=== PATIENT | male | born 1950 ===

== ENCOUNTER 2018-08-06 14:31 | Inpatient (IN) | payer MEDICARE ==
[2018-08-06 14:32] VITALS: BMI 23.6
--- NOTE | 2018-08-06 15:36 | ED PDOC ---
HPI: SOB/CHF/COPD Time Seen by Provider: 08/06/18 15:08 Chief Complaint (Nursing): Medical Clearance Chief Complaint (Provider): Shortness of Breath History Per: Patient History/Exam Limitations: no limitations Onset/Duration Of Symptoms: Hrs (this morning) Current Symptoms Are (Timing): Still Present Additional Complaint(s): 68 year old male with advanced lung cancer presents to the ED for difficulty breathing since this morning. He states he was recently hospitalized for several days and then discharged, since doing well at home on 2L O2. Today, he reports worsening shortness of breath and called his cousin, who is his healthcare proxy and called 911. Patient does note that his shortness of breath feels like it typically does, and otherwise denies chest pain, cough, and fever. PMD: none provided Past Medical History Reviewed: Historical Data, Nursing Documentation, Vital Signs Vital Signs: Last Vital Signs Temp 98.6 F 08/06/18 14:35 Pulse 117 H 08/06/18 14:35 Resp 24 08/06/18 14:35 BP 126/79 08/06/18 14:35 Pulse Ox 94 L 08/06/18 14:35 - Medical History PMH: Asthma, Malignancy (lung cancer) Denies: Chronic Kidney Disease - Surgical History Surgical History: No Surg Hx - Family History Family History: States: Unknown Family Hx - Social History Ex-Smoker (has not smoked in the last 12 months): Yes Alcohol: None Drugs: Denies - Immunization History Hx Tetanus Toxoid Vaccination: No Hx Influenza Vaccination: No Hx Pneumococcal Vaccination: No - Home Medications Home Medications: Ambulatory Orders Medication Instructions Recorded Budesonide/Formoterol Fumarate 1 aer IH Q12 #1 aer 07/30/18 [Symbicort] Tiotropium [Spiriva] 18 mcg IH DAILY 30 Days #30 cap 07/30/18 predniSONE [Prednisone] 40 mg PO DAILY #20 tab 07/30/18 predniSONE [predniSONE Tab] 10 mg PO DAILY #10 tab 07/30/18 RX: Albuterol HFA [Ventolin HFA 90 2 puff IH Q6 PRN 08/06/18 mcg/actuation (8 g)] - Allergies Allergies/Adverse Reactions: Allergies Allergy/AdvReac Type Severity Reaction Status Date / Time No Known Allergies Allergy Verified 07/20/18 19:16 Review of Systems ROS Statement: Except As Marked, All Systems Reviewed And Found Negative Constitutional: Negative for: Fever Cardiovascular: Negative for: Chest Pain Respiratory: Positive for: Shortness of Breath. Negative for: Cough Physical Exam - Reviewed Nursing Documentation Reviewed: Yes Vital Signs Reviewed: Yes - Physical Exam Appears: Positive for: No Acute Distress Head Exam: Positive for: ATRAUMATIC, NORMOCEPHALIC Skin: Positive for: Warm, Dry Eye Exam: Positive for: Normal appearance ENT: Positive for: Normal ENT Inspection Neck: Positive for: Normal, Painless ROM, Supple Cardiovascular/Chest: Positive for: Tachycardia. Negative for: Murmur Respiratory: Positive for: Decreased Breath Sounds (decreased air entry bilaterally), Other (retractions). Negative for: Crackles Gastrointestinal/Abdominal: Positive for: Normal Exam, Soft. Negative for: Tenderness Extremity: Positive for: Normal ROM, Other (chronic venous stasis to bilateral lower extremities) Neurologic/Psych: Positive for: Alert, Oriented (x3) - Laboratory Results Result Diagrams: 08/06/18 15:40 08/06/18 15:40 - ECG ECG: Positive for: Interpreted By Me, Viewed By Me ECG Rhythm: Positive for: Normal QRS, Normal ST Segment, Sinus Tachycardia (at 117 bpm) O2 Sat by Pulse Oximetry: 94 (RA) Pulse Ox Interpretation: Abnormal Interpretation Of Abnormal: history cancer; will place on 5L [place] Medical Decision Making Medical Decision Making: Time: 1510 Initial Impression: Workup for worsening shortness of breath with known cancer, r/o infectious process Initial Plan: --On 5L NC --EKG --BNP --CMP --Trop I --CBC with differential --Chest x-ray --Influenza A B --Reassess 1636 CXR FINDINGS: LUNGS: Multifocal pulmonary masses are identified varying in size from small to large with the right apex seen most affected, in a pattern most compatible with metastatic disease. Primary pulmonary pathology not excluded though other etiologies are possible. Airspace disease difficult exclude the upper right lung zone. Emphysematous changes appear to affect the medial right apex. PLEURA: No significant pleural effusion identified, no pneumothorax apparent. CARDIOVASCULAR: No aortic atherosclerotic calcification present. Normal cardiac size. No pulmonary vascular congestion. OSSEOUS STRUCTURES: No significant abnormalities. VISUALIZED UPPER ABDOMEN: Normal. OTHER FINDINGS: None. IMPRESSION: Widespread pulmonary metastasis are identified from an indeterminate origin as discussed above. Elevated limited diaphragm. Underlying airspace disease difficult to exclude the right upper lung zone. Emphysematous changes are suspected at the medial right apex. 17:46: Discussed patient with Dr. Cifuentes who is familiar with the patients previous treatment and will be taking over as PCP but has not yet seen the patient. Labs and XRay results discussed and will no obtain a CT chest to rule out PE. Will contact Dr. Cifuentes with CT results. [address] Cunningham pending CT Angio and admission to Dr. Cifuentes. Scribe Attestation: Documented by Susan Villagran, acting as a scribe for Veronica Jones MD. Provider Scribe Attestation: All medical record entries made by the Scribe were at my direction and personally dictated by me. I have reviewed the chart and agree that the record accurately reflects my personal performance of the history, physical exam, medical decision making, and the department course for this patient. I have also personally directed, reviewed, and agree with the discharge instructions and disposition. Disposition - Clinical Impression Clinical Impression: Dyspnea, Lung cancer, Multiple lung nodules on CT - Disposition Disposition: Transfer of Care Disposition Time: 19:00 Condition: STABLE
[2018-08-06 16:21] LABS: BASO % 0.2 % (0.0-2.0); EOS % 0.2 % (0.0-4.0); HEMOGLOBIN 13.3 g/dL (12.0-18.0); LYMPH # 0.6 K/uL (1.0-4.3); LYMPH % 4.4 % (20.0-40.0); MEAN CELL VOLUME 84.4 fl (80.0-94.0); MEAN PLATELET VOLUME 8.1 fl (7.2-11.7); MONO # 0.6 K/uL (0.0-0.8); MONO % 4.9 % (0.0-10.0); NEUT # 11.8 K/uL (1.8-7.0); NEUT % 90.3 % (50.0-75.0); PLATELET COUNT 191 K/uL (130-400); RBC 4.91 Mil/uL (4.40-5.90); RED CELL DISTRIBUTION WIDTH 17.8 % (11.5-14.5); WHITE BLOOD COUNT 13.1 K/uL (4.8-10.8)
[2018-08-06 16:23] LABS: ALB/GLOB RATIO 0.9 (1.0-2.1); ALBUMIN 3.2 g/dL (3.5-5.0); ALT/SGPT 36 U/L (21-72); AST/SGOT 20 U/L (17-59); B-TYPE NATRIURETIC PEPTIDE 155 pg/ml (0-900); BLOOD UREA NITROGEN 24 mg/dl (9-20); CALCIUM 8.8 mg/dL (8.4-10.2); GFR NON-AFRICAN AMERICAN > 60
--- NOTE | 2018-08-06 16:40 | RAD ---
Date of service: 08/06/2018 HISTORY: possible admission COMPARISON: No prior. FINDINGS: LUNGS: Multifocal pulmonary masses are identified varying in size from small to large with the right apex seen most affected, in a pattern most compatible with metastatic disease. Primary pulmonary pathology not excluded though other etiologies are possible. Airspace disease difficult exclude the upper right lung zone. Emphysematous changes appear to affect the medial right apex. PLEURA: No significant pleural effusion identified, no pneumothorax apparent. CARDIOVASCULAR: No aortic atherosclerotic calcification present. Normal cardiac size. No pulmonary vascular congestion. OSSEOUS STRUCTURES: No significant abnormalities. VISUALIZED UPPER ABDOMEN: Normal. OTHER FINDINGS: None. IMPRESSION: Widespread pulmonary metastasis are identified from an indeterminate origin as discussed above. Elevated limited diaphragm. Underlying airspace disease difficult to exclude the right upper lung zone. Emphysematous changes are suspected at the medial right apex.
[2018-08-06] MEDS ORDERED: Albuterol-Ipratrop 3 mg / 0.5 (3 ml) UD INH STA (17:11)
[2018-08-06] MEDS ORDERED: Sodium Chloride 0.9% 50 ML IV ONE (17:58)
[2018-08-06] MEDS ORDERED: Iodixanol 320 MG/ML 100 ML BOTTLE IV ONE (17:58)
[2018-08-06 18:00] LABS: BASOPHIL 1 % (0-2); LYMPHOCYTE 5 % (20-50); MONOCYTE 4 % (0-10); NEUTROPHIL 90 % (42-75); PLATELET ESTIMATE NORMAL (NORMAL); TOTAL CELLS COUNTED 100
[2018-08-06 18:01] LABS: ANISOCYTOSIS SLIGHT
[2018-08-06 18:02] LABS: OVALOCYTES SLIGHT
[2018-08-06] MEDS ORDERED: Albuterol-Ipratrop 3 mg / 0.5 (3 ml) UD ONE (19:07)
--- NOTE | 2018-08-06 19:23 | ED PDOC ---
- Laboratory Results Result Diagrams: 08/06/18 15:40 08/06/18 15:40 - ECG O2 Sat by Pulse Oximetry: 94 (RA) Medical Decision Making Medical Decision Makin Patient care endorsed from Dr. Jones pending CT Angio and admission to Dr. Cifuentes. 1915 CT Angio COMMENTS: There is bright opacification of the aorta and pulmonary arterial structures. The aorta is normal caliber and there is no dissection of the intima. No defect is seen in the pulmonary arteries to suggest pulmonary embolus. The lungs show no consolidation or pleural effusion. Severe upper lobes predominant paraseptal and centrilobular emphysema is seen. There innumerable lung masses and nodules seen scattered throughout the lungs consistent with metastatic disease but appears to be a dominant right suprahilar mass most consistent with primary malignancy measuring approximately 9 x 6 cm. There is extensive bilateral hilar and mediastinal lymphadenopathy noted. The bony structures appear intact. No change is seen in the included upper abdominal structures. IMPRESSION: 1. No evidence of pulmonary embolism. 2. Severe upper lobes predominant paraseptal and centrilobular emphysema. 3. Innumerable lung masses and nodules seen scattered throughout the lungs consistent with metastatic disease but appears to be a dominant right suprahilar mass most consistent with primary malignancy measuring approximately 9 x 6 cm. Consider follow-up with PET CT. 4. Extensive bilateral hilar and mediastinal lymphadenopathy. 5. No evidence of PE. 2026 no PE Patient to be admitted to Dr. Cifuentes. pt aware and requesting food ---- Scribe Attestation: Documented by Susan Villagran, acting as a scribe for Dagoberto Hanson MD. Provider Scribe Attestation: All medical record entries made by the Scribe were at my direction and personally dictated by me. I have reviewed the chart and agree that the record accurately reflects my personal performance of the history, physical exam, medical decision making, and the department course for this patient. I have also personally directed, reviewed, and agree with the discharge instructions and d isposition. Disposition Counseled Patient/Family Regarding: Studies Performed, Diagnosis - Clinical Impression Clinical Impression: Dyspnea, Lung cancer, Multiple lung nodules on CT - POA Present On Arrival: None - Disposition Disposition: Admitted as In-Patient Disposition Time: 00:10 Condition: STABLE
[2018-08-07] MEDS ORDERED: Albuterol-Ipratrop 3 mg / 0.5 (3 ml) UD INH PRN (01:43)
[2018-08-07] MEDS ORDERED: Sodium Chloride 3% for Inhalation 4 ML VIAL.NEB IH PRN (01:43)
[2018-08-07] MEDS ORDERED: Patient's Own Med (Budesonide/Formoterol Fumarate [Symbicort 160-4.5 Mcg Inhaler] 1 AER) IH SCH (09:00)
[2018-08-07] MEDS: levoFLOXacin 500 mg in D5W 500 MG/100 ML BAG IVPB SCH (09:20)
[2018-08-07] MEDS: Enoxaparin 40 mg Syringe SC SCH (09:21)
[2018-08-07] MEDS: Fluticasone-Salmeterol 250-50mcg Diskus IH SCH ×2 (09:21→22:08)
[2018-08-07] MEDS: Tiotropium 18 mcg Cap For Inhalation IH SCH (09:22)
--- NOTE | 2018-08-07 10:43 | CT ---
Date of service: 08/06/2018 PROCEDURE: CT Chest with contrast (Pulmonary Angiogram) HISTORY: acute worsened SOB with lung ca COMPARISON: None available. TECHNIQUE: Axial computed tomography images were obtained of the chest in the pulmonary arterial phase of enhancement. Coronal and sagittal reformatted images were created and reviewed. Intravenous contrast dose: 95 mL Omnipaque 300 Radiation dose: Total exam DLP = 324.9 mGy-cm. This CT exam was performed using one or more of the following dose reduction techniques: Automated exposure control, adjustment of the mA and/or kV according to patient size, and/or use of iterative reconstruction technique. FINDINGS: PULMONARY ARTERIES: No evidence of pulmonary embolism. Please note that there is narrowing of the right lower lobe pulmonary artery branch and severe narrowing ordering on occlusion of the right upper lobe pulmonary artery branch, secondary to pulmonary neoplasm. AORTA: No acute findings. No thoracic aortic aneurysm. No aortic atherosclerotic calcification or mural plaque present. LUNGS: Innumerable pulmonary masses bilaterally. Dominant mass in right upper lobe occupying most of the volume of the right upper lobe with areas of central cavitation/necrosis. There is extensive bilateral rounded nodular metastasis. Mild emphysematous change most notably left upper lobe, with small bullae bilaterally.. PLEURAL SPACES: Small right upper pneumothorax. No pleural effusion. HEART: Unremarkable. No cardiomegaly. No significant pericardial effusion. LYMPH NODES: Extensive mediastinal and bilateral hilar lymphadenopathy. Large right upper pole dominant mass extends directly to right hilum and mediastinum. Right epicardial lymphadenopathy. BONES, CHEST WALL: Unremarkable. No fracture or destructive lesion. Mild bilateral gynecomastia. OTHER FINDINGS: Multiple nonspecific rounded low-attenuation masses in the left lobe of the liver. There is a 1.7 cm mass in the lateral segment left hepatic lobe, beneath the dome of the diaphragm. 1.6 cm mass also seen in the lateral segment left hepatic lobe. IMPRESSION: Large right upper lobe mass predominantly replacing the right upper lobe. Areas of central cavitation/necrosis. Almost complete occlusion of right upper lobe pulmonary artery by extrinsic compression.. Extrinsic compression and narrowing of right lower lobe pulmonary artery. Innumerable bilateral rounded masses consistent with metastasis. Mediastinal and bilateral hilar lymphadenopathy. Small right upper pneumothorax. Follow-up advised. Multiple hepatic masses common nonspecific. Possible metastasis. The preliminary findings for this examination were reported by [facility] Rad[facility] at 7:16 p.m. on 08/06/2018. There is discordance of this report with the preliminary findings. Small right pneumothorax was not mentioned in the preliminary report of this examination. Possible hepatic metastasis was not described in the preliminary report of this examination. Occlusion or near occlusion of right upper lobe pulmonary artery was not described in the preliminary report of this examination. The finding of the pneumothorax common not previously reported, was discussed by telephone with the patient's nurse, Yee, by telephone at 10:39 a.m. on 08/07/2018.
--- NOTE | 2018-08-07 20:24 | CARD ---
APPROVED REPORT Date of service: 08/06/2018 EKG Measurement Heart [id number] <Conclusion> Sinus tachycardia Biatrial enlargement Abnormal ECG
[2018-08-08] MEDS: MethylPREDNISolone 40 mg Vial IVP SCH ×3 (01:06→17:13)
--- NOTE | 2018-08-08 08:42 | HP ---
HISTORY OF PRESENT ILLNESS: This is a 68-year-old male with history of metastatic cancer of lung, presented to the emergency room with symptoms of wheezing as well as shortness of breath and dropping of the oxygen saturation. The patient recently was diagnosed with cancer of lung, and he is under treatment by medical oncologist, Dr. Chavez. The patient was and he is on home oxygen, and his oxygen was dropping in spite of home oxygen therapy. The patient was evaluated in the emergency room, and he was found to have significant disease in both lungs with a large right-sided lung mass. The patient was started on IV Levaquin as well as steroids and admitted for further management. Positive symptoms of generalized weakness and easy fatigability. Otherwise, review of systems is negative. ALLERGIES: NO KNOWN ALLERGIES. MEDICATIONS: Reviewed as per MAR and ordered. SOCIAL HISTORY: Positive smoker. No EtOH or substance abuse. FAMILY HISTORY: Not contributory. PHYSICAL EXAMINATION: GENERAL: The patient was found in bed in mild respiratory distress. VITAL SIGNS: Blood pressure 105/72, temperature 99.2, respiratory rate 20, and pulse 113. HEENT: Pupils equal and reactive to light. Normal appearing mucosa of the conjunctivae, oropharynx, and nasal membrane mucosa. NECK: Supple. No JVD. No carotid bruit. No lymph node. No thyromegaly. CHEST AND LUNGS: Bilateral symmetrical expansion. Bilateral rhonchi, both inspiratory and expiratory with coarse rales that change with cough. CARDIOVASCULAR SYSTEM: PMI not localized. S1 and S2. No additional sounds. ABDOMEN: Normoactive bowel sounds. No tenderness. No organomegaly. No masses. EXTREMITIES: No cyanosis. No clubbing. CENTRAL NERVOUS SYSTEM: Alert, awake, and oriented x2 and moves all extremities equally. ASSESSMENT: 1. Metastatic cancer of lung. 2. underlying obstructive pneumonia. 3. Exacerbation of chronic obstructive pulmonary disease. PLAN: Steroids and bronchodilators, antibiotics, pulmonary consult, oncology consult , and follow recommendations. Guillermo Cifuentes MD
[2018-08-08] MEDS: levoFLOXacin 500 mg in D5W 500 MG/100 ML BAG IVPB SCH (09:22)
[2018-08-08] MEDS: Fluticasone-Salmeterol 250-50mcg Diskus IH SCH ×2 (09:22→21:47)
[2018-08-08] MEDS: Enoxaparin 40 mg Syringe SC SCH (09:23)
[2018-08-08] MEDS: Tiotropium 18 mcg Cap For Inhalation IH SCH (09:23)
--- NOTE | 2018-08-08 09:44 | RAD ---
Date of service: 08/08/2018 PROCEDURE: CHEST RADIOGRAPH, 1 VIEW HISTORY: lung mass COMPARISON: 08/06/2018 chest x-ray. CT chest angio PE study 08/06/2018 noted FINDINGS: LUNGS: The innumerable bilateral pulmonary nodular masses bearing size suspicious for bilateral pulmonary metastases are similar in appearance. These appear more confluent and/or blending with a dominant right upper lobe pulmonary mass as before. An air-fluid level in this right upper lobe an note necrosis and/or cavitary mass. Which has been previously noted. No interval change appreciated in the overall extensive pulmonary masses perceived. PLEURA: Prior mention of a pneumothorax noted. This is difficult to appreciate as such on this exam. Right paratracheal superimpose radiolucency-inferred as large confluent concomitant bulla. No tracheal deviation appreciated. No interval or significant appearing pleural effusion noted. A minimal left pleural effusion and/or chronic pleural thickening here is inferred. CARDIOVASCULAR: There is absence of aortic atherosclerotic calcification on x-ray. Heart size probably top-normal. No gross pulmonary venous congestion seen. OSSEOUS STRUCTURES: Bilateral shoulder arthrosis. VISUALIZED UPPER ABDOMEN: Normal. OTHER FINDINGS: Asymmetrically elevated left hemidiaphragm blunted left costophrenic angle-similar in appearance IMPRESSION: No interval pathology perceived-the multiple findings noted above are summarized as follows: Bilateral pulmonary inferred metastatic nodules-similar. Large right upper lobe cavitation and/or necrosis-similar. Right paratracheal large bulla-concomitant pneumothorax here difficult to perceive. Minimal left costophrenic angle pleural thickening and/or minimal pleural effusion-similar
--- NOTE | 2018-08-08 09:50 | CP.PCM.CON ---
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 He had multiple masses in the lung especially in the right upper lobe ,and has hilar and medias tinal nodes, This was biopsied at [facility],and showed squamous cell cancer of the lung. he was seen by a oncologist Dr Chavez. Pt was supposed to go to her office for discussing the treatment plans. So far he has not had any RT or chemotherapy. Pt was a smoker 10 cigs /day for several years. COPD does not drink. Past Patient History - Past Medical History & Family History Past Medical History?: Yes - Past Social History Smoking Status: Heavy Smoker > 10 Cigarettes Daily - CARDIAC Hx Cardiac Disorders: No - PULMONARY Hx Respiratory Disorders: Yes - NEUROLOGICAL Hx Neurological Disorder: No - HEENT Hx HEENT Problems: No - RENAL Hx Chronic Kidney Disease: No - ENDOCRINE/METABOLIC Hx Endocrine Disorders: No - HEMATOLOGICAL/ONCOLOGICAL Hx Blood Disorders: No - INTEGUMENTARY Hx Dermatological Problems: No - MUSCULOSKELETAL/RHEUMATOLOGICAL Hx Musculoskeletal Disorders: No Hx Falls: No - GASTROINTESTINAL Hx Gastrointestinal Disorders: No - GENITOURINARY/GYNECOLOGICAL Hx Genitourinary Disorders: No - PSYCHIATRIC Hx Psychophysiologic Disorder: No Hx Substance Use: No - SURGICAL HISTORY Hx Surgeries: No - ANESTHESIA Hx Anesthesia: No Meds Allergies/Adverse Reactions: Allergies Allergy/AdvReac Type Severity Reaction Status Date / Time No Known Allergies Allergy Verified 07/20/18 19:16 - Medications Medications: Current Medications Acetaminophen (Tylenol 325mg Tab) 650 mg PO Q4 PRN PRN Reason: Pain, Mild (1-3) Albuterol/Ipratropium (Duoneb 3 Mg/0.5 Mg (3 Ml) Ud) 3 ml INH RQ6 PRN PRN Reason: Shortness of Breath Enoxaparin Sodium (Lovenox) 40 mg SC DAILY JACK; Protocol Last Admin: 08/08/18 09:23 Dose: 40 mg Levofloxacin/Dextrose (Levaquin 500mg) 500 mg in 100 mls @ 100 mls/hr IVPB DAILY JACK; Protocol Last Admin: 08/08/18 09:22 Dose: 100 mls/hr Methylprednisolone (Solu-Medrol) 40 mg IVP Q8 JACK Last Admin: 08/08/18 09:23 Dose: 40 mg Fluticasone/Salmeterol (Advair Diskus 250/50) 1 puff IH Q12 JACK Last Admin: 08/08/18 09:22 Dose: 1 puff Tiotropium [place] (Spiriva) 18 mcg IH DAILY JACK Last Admin: 08/08/18 09:23 Dose: 18 mcg Physical Exam - Additional Findings Additional findings: Physical exam; Alert,well oriented in no acute distress neck; supple.no adenopathy Chest; Air entry poor bilaterally Heart; RSR, no murmur Abd; Soft, no mass, no h/s megaly Results - Vital Signs Recent Vital Signs: Last Vital Signs Temp 98.1 F 08/08/18 07:55 Pulse 87 08/08/18 07:55 Resp 18 08/08/18 07:55 BP 100/65 08/08/18 07:55 Pulse Ox 98 08/08/18 07:55 - Labs Result Diagrams: 08/06/18 15:40 08/06/18 15:40 Assessment & Plan - Assessment and Plan (Free Text) Assessment: Impression; 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 Plan: Plan; Pt can be discharged whhen stable from a respiratory point of view, and he will make an appointment with Dr Chavez on discharge.
--- NOTE | 2018-08-08 10:56 | CP.PCM.CON ---
History of Present Illness - History of Present Illness History of Present Illness: 68 year old male cigarette smoker recently diagnosed at [facility] with squamous cell carcinoma of the lung, appears to be RUL primary with diffuse metastatic disease to both lungs, mediastinum and liver. Presented to this ER one week after discharge because of oxygen desaturation. He had been discharged with home O2 and planned follow up with oncology for treatment which he had not yet been able to do. He claims to have discontinued smoking at the time of his admission to [facility]. He denies chest pain or hemoptysis. Past Patient History - Past Medical History & Family History Past Medical History?: Yes - Past Social History Smoking Status: Heavy Smoker > 10 Cigarettes Daily Alcohol: None Drugs: Denies - CARDIAC Hx Cardiac Disorders: No - PULMONARY Hx Respiratory Disorders: Yes Hx Lung Cancer: Yes - NEUROLOGICAL Hx Neurological Disorder: No - HEENT Hx HEENT Problems: No - RENAL Hx Chronic Kidney Disease: No - ENDOCRINE/METABOLIC Hx Endocrine Disorders: No - HEMATOLOGICAL/ONCOLOGICAL Hx Blood Disorders: No - INTEGUMENTARY Hx Dermatological Problems: No - MUSCULOSKELETAL/RHEUMATOLOGICAL Hx Musculoskeletal Disorders: No Hx Falls: No - GASTROINTESTINAL Hx Gastrointestinal Disorders: No - GENITOURINARY/GYNECOLOGICAL Hx Genitourinary Disorders: No - PSYCHIATRIC Hx Psychophysiologic Disorder: No Hx Substance Use: No - SURGICAL HISTORY Hx Surgeries: No - ANESTHESIA Hx Anesthesia: No Meds Allergies/Adverse Reactions: Allergies Allergy/AdvReac Type Severity Reaction Status Date / Time No Known Allergies Allergy Verified 07/20/18 19:16 - Medications Medications: Current Medications Acetaminophen (Tylenol 325mg Tab) 650 mg PO Q4 PRN PRN Reason: Pain, Mild (1-3) Albuterol/Ipratropium (Duoneb 3 Mg/0.5 Mg (3 Ml) Ud) 3 ml INH RQ6 PRN PRN Reason: Shortness of Breath Enoxaparin Sodium (Lovenox) 40 mg SC DAILY JACK; Protocol Last Admin: 08/08/18 09:23 Dose: 40 mg Levofloxacin/Dextrose (Levaquin 500mg) 500 mg in 100 mls @ 100 mls/hr IVPB DA [place]OL[place] JACK; Protocol Last Admin: 08/08/18 09:22 Dose: 100 mls/hr Methylprednisolone (Solu-Medrol) 40 mg IVP Q8 JACK Last Admin: 08/08/18 09:23 Dose: 40 mg Fluticasone/Salmeterol (Advair Diskus 250/50) 1 puff IH Q12 [facility] Last Admin: 08/08/18 09:22 Dose: 1 puff Tiotropium [place] (Spiriva) 18 mcg IH DAILY [facility] Last Admin: 08/08/18 09:23 Dose: 18 mcg Physical Exam - Additional Findings Additional findings: Seated up in bed with nasal canula in place. He appears comfortable at rest without SOB. No cyanosis, trace dependant edema. Pharynx in injected with posterior rhinorrhea noted. Nasal passages are patent bilaterally without bleeding or exudate. Neck is supple and trachea is slightly deviated towards the right. No palpable cervical or axillary adenopathy. Dullness to percussion of the right upper chest anteriorly. Noisy respiration with rhonchi present over the right upper chest. Breath sounds are diminished bilaterally. No audible wheezing. Heart sounds are distant, tachycardic, regular. Abdomen is soft and non-tender. Results - Vital Signs Recent Vital Signs: Last Vital Signs Temp 98.1 F 08/08/18 07:55 Pulse 87 08/08/18 07:55 Resp 18 08/08/18 07:55 BP 100/65 08/08/18 07:55 Pulse Ox 98 08/08/18 07:55 - Labs Result Diagrams: 08/06/18 15:40 08/06/18 15:40 Assessment & Plan (1) Lung cancer Status: Acute Priority: High (2) Widespread metastatic malignant neoplastic disease Status: Acute Priority: High - Assessment and Plan (Free Text) Plan: Patient requests discharge back to home. Oxygenation has been >95% consistently on nasal canula @ 2 LPM. Needs oncology follow up as soon as possible and initiation of chemotherapy. Continue home O2. Prognosis is very poor. - Date & Time Date: 08/08/18 Time: 10:57
--- NOTE | 2018-08-08 21:21 | PN ---
DATE: 08/08/2018 SUBJECTIVE: The patient is seen today, 08/08/2018. He is in mild respiratory distress and he has wheezing. PHYSICAL EXAMINATION VITAL SIGNS: Blood pressure is 101/68, temperature 98.5, respiratory rate 17 and pulse 96. HEENT: Pupils equal, reactive to light. Normal-appearing mucosa of the conjunctivae, oropharynx and nasal membrane mucosa. NECK: Supple. No JVD. No carotid bruit. No lymph node. No thyromegaly. CHEST AND LUNGS: Bilateral symmetrical expansion. Good air exchange. No rales. Bilateral rhonchi scattered in lower over lung benavidez. CARDIOVASCULAR SYSTEM: PMI not localized. S1, S2. No additional sounds. ABDOMEN: Normoactive bowel sounds. No tenderness. No organomegaly. No masses. EXTREMITIES: No cyanosis, no clubbing, no edema. CENTRAL NERVOUS SYSTEM: Alert, awake, oriented x2. No neurological deficit could be appreciated. ASSESSMENT: 1. Metastatic cancer of lung, squamous cell carcinoma. 2. Severe chronic obstructive pulmonary disease with airway disease and bronchitis. PLAN: Continue Solu-Medrol, Levaquin and DuoNeb. We will add Mucomyst. I discussed with the patient's caregiver who requested to call oncology consult in [facility] and decide about further management. Guillermo Cifuentes MD
[2018-08-09] MEDS: MethylPREDNISolone 40 mg Vial IVP SCH (00:09)
[2018-08-09] MEDS: Acetylcysteine 20% Inhal Soln (4ml) INH SCH ×2 (07:34→19:39)
--- NOTE | 2018-08-09 10:14 | CP.PCM.PN ---
Subjective - Date & Time of Evaluation Date of Evaluation: 08/09/18 Time of Evaluation: 10:08 - Subjective Subjective: Seen on morning rounds. Sitting up in bed, asking if he can go home. Offers no complaint of shortness of breath or chest pain. Neck is supple and trachea is mildly deviated towards the right. Dullness to percussion over the right upper, anterior thorax. Harsh breath sounds with I/E rhonchi most prominent over the RUL. Repeat CXR reviewed: likely RUL bullae are causing shadowing that appear to represent pneumothorax. If therapy is to be considered, it should be initiated soon. ANP on telemetry will contact POA and discuss option. Objective - Vital Signs/Intake and Output Vital Signs (last 24 hours): Temp Pulse Resp BP Pulse Ox 97.7 F 78 18 100/65 98 08/09/18 08:19 08/09/18 08:19 08/09/18 08:19 08/09/18 08:19 08/09/18 08:19 - Medications Medications: Current Medications Acetaminophen (Tylenol 325mg Tab) 650 mg PO Q4 PRN PRN Reason: Pain, Mild (1-3) Acetylcysteine (Acetylcysteine 20%) 2 ml INH RBID JACK Last Admin: 08/09/18 07:34 Dose: 2 ml Albuterol/Ipratropium (Duoneb 3 Mg/0.5 Mg (3 Ml) Ud) 3 ml INH RQ6 PRN PRN Reason: Shortness of Breath Last Admin: 08/09/18 07:34 Dose: 3 ml Enoxaparin Sodium (Lovenox) 40 mg SC DAILY JACK; Protocol Last Admin: 08/08/18 09:23 Dose: 40 mg Levofloxacin/Dextrose (Levaquin 500mg) 500 mg in 100 mls @ 100 mls/hr IVPB DAILY JACK; Protocol Last Admin: 08/08/18 09:22 Dose: 100 mls/hr Methylprednisolone (Solu-Medrol) 40 mg IVP Q8 JACK Last Admin: 08/09/18 00:09 Dose: 40 mg Fluticasone/Salmeterol (Advair Diskus 250/50) 1 puff IH Q12 JACK Last Admin: 08/08/18 21:47 Dose: 1 puff Tiotropium Whitestone (Spiriva) 18 mcg IH DAILY JACK Last Admin: 08/08/18 09:23 Dose: 18 mcg - Labs Labs: 08/06/18 15:40 08/06/18 15:40 Assessment and Plan (1) Lung cancer Status: Acute (2) Widespread metastatic malignant neoplastic disease Status: Acute
[2018-08-09] MEDS ORDERED: Albuterol 0.083% Inhal Sol (2.5 mg/3 mL) UD INH PRN (10:18)
[2018-08-09] MEDS ORDERED: methylPREDNISolone 30 MG in Sodium Chloride 0.9% 50 ML IV SCH (10:30)
[2018-08-09] MEDS ORDERED: MethylPREDNISolone 40 mg Vial IVP ONE (10:30)
--- NOTE | 2018-08-09 10:44 | CP.PCM.PN ---
Subjective - Date & Time of Evaluation Date of Evaluation: 08/09/18 Time of Evaluation: 10:37 - Subjective Subjective: Pt claims he feels better today. He is still on antibiotics and steroids. He has been a smoker for several yrs and only stopped when the diagnosis of cancer was made. He was seen by Dr Chavez and was supposed to go back and see her in the office, but did not make it .and came to the ER with respiratory distress. He needs chemotherapy but he cannot decide if he wants to go to Dr Chavez or to stay at [facility]. The infusion unit is closed and the oncology nurse will only be available on Monday so he will have to get the chemo then. He is keen to go home and then think where he wants to go . He has a squamous cell cancer I will be on vacation from 08/10/18 to 08/25/18. Dr Quoc Bowden will be covering for me. Objective - Vital Signs/Intake and Output Vital Signs (last 24 hours): Temp Pulse Resp BP Pulse Ox 97.7 F 78 18 100/65 98 08/09/18 08:19 08/09/18 08:19 08/09/18 08:19 08/09/18 08:19 08/09/18 08:19 - Medications Medications: Current Medications Acetaminophen (Tylenol 325mg Tab) 650 mg PO Q4 PRN PRN Reason: Pain, Mild (1-3) Acetylcysteine (Acetylcysteine 20%) 2 ml INH RBID JACK Last Admin: 08/09/18 07:34 Dose: 2 ml Albuterol Sulfate (Albuterol 0.083% Inhal Jo Ann (2.5 Mg/3 Ml) Ud) 2.5 mg INH RQ4 PRN PRN Reason: Shortness of Breath Albuterol/Ipratropium (Duoneb 3 Mg/0.5 Mg (3 Ml) Ud) 3 ml INH RQID JACK Enoxaparin Sodium (Lovenox) 40 mg SC DAILY JACK; Protocol Last Admin: 08/08/18 09:23 Dose: 40 mg Levofloxacin/Dextrose (Levaquin 500mg) 500 mg in 100 mls @ 100 mls/hr IVPB DAILY JACK; Protocol Last Admin: 08/08/18 09:22 Dose: 100 mls/hr - Labs Labs: 08/06/18 15:40 08/06/18 15:40
[2018-08-09] MEDS: Enoxaparin 40 mg Syringe SC SCH (11:06)
[2018-08-09] MEDS: levoFLOXacin 500 mg in D5W 500 MG/100 ML BAG IVPB SCH (11:06)
[2018-08-09] MEDS: Fluticasone-Salmeterol 250-50mcg Diskus IH SCH (11:12)
[2018-08-09] MEDS: Tiotropium 18 mcg Cap For Inhalation IH SCH (11:24)
[2018-08-09] MEDS: Albuterol-Ipratrop 3 mg / 0.5 (3 ml) UD INH SCH ×3 (11:25→19:36)
[2018-08-10] MEDS: Albuterol-Ipratrop 3 mg / 0.5 (3 ml) UD INH SCH ×4 (07:22→19:23)
[2018-08-10] MEDS: Acetylcysteine 20% Inhal Soln (4ml) INH SCH ×2 (07:22→19:23)
[2018-08-10] MEDS ORDERED: methylPREDNISolone 30 MG in Sodium Chloride 0.9% 50 ML IV ONE (09:00)
[2018-08-10] MEDS: Enoxaparin 40 mg Syringe SC SCH (09:38)
[2018-08-10] MEDS: levoFLOXacin 500 mg in D5W 500 MG/100 ML BAG IVPB SCH (09:38)
[2018-08-10] MEDS ORDERED: MethylPREDNISolone 40 mg Vial IVP ONE (10:00)
--- NOTE | 2018-08-10 11:32 | CP.PCM.PN ---
Subjective - Date & Time of Evaluation Date of Evaluation: 08/10/18 Time of Evaluation: 11:25 - Subjective Subjective: Seated upright in bed, appears comfortable. States that he is feeling improved. No complaints of chest discomfort or SOB. Breath sounds are significantly improved fro admission. Airways turbulence, prolonged E phase have both decreased. Good breath sounds are now heard bilaterally, but some E wheezes are still faintly present. Plan is to tentatively begin chemotherapy in the coming week. Continue inhalation therapy with albuterol/ipratropium. Would maintain some level of corticosteroids as well; either PO or parenteral. Objective - Vital Signs/Intake and Output Vital Signs (last 24 hours): Temp Pulse Resp BP Pulse Ox 97.6 F 90 20 101/71 99 08/10/18 07:53 08/10/18 07:53 08/10/18 07:53 08/10/18 07:53 08/10/18 07:53 - Medications Medications: Current Medications Acetaminophen (Tylenol 325mg Tab) 650 mg PO Q4 PRN PRN Reason: Pain, Mild (1-3) Acetylcysteine (Acetylcysteine 20%) 2 ml INH RBID JACK Last Admin: 08/10/18 07:22 Dose: 2 ml Albuterol Sulfate (Albuterol 0.083% Inhal Jo Ann (2.5 Mg/3 Ml) Ud) 2.5 mg INH RQ4 PRN PRN Reason: Shortness of Breath Albuterol/Ipratropium (Duoneb 3 Mg/0.5 Mg (3 Ml) Ud) 3 ml INH RQID JACK Last Admin: 08/10/18 11:00 Dose: 3 ml Enoxaparin Sodium (Lovenox) 40 mg SC DAILY JACK; Protocol Last Admin: 08/10/18 09:38 Dose: 40 mg Levofloxacin/Dextrose (Levaquin 500mg) 500 mg in 100 mls @ 100 mls/hr IVPB DAILY JACK; Protocol Last Admin: 08/10/18 09:38 Dose: 100 mls/hr - Labs Labs: 08/06/18 15:40 08/06/18 15:40 Assessment and Plan (1) Lung cancer Status: Acute (2) Widespread metastatic malignant neoplastic disease Status: Acute
--- NOTE | 2018-08-10 12:05 | CP.PCM.CON ---
History of Present Illness - History of Present Illness History of Present Illness: Covering Dr. Galvez 68 year old male with a history of tobacco abuse, developmental delay, recently diagnosed with stage IV NSCLC (squamous cell carcinoma) with radiographic lung and liver metastasis admitted with shortness of breath. The patient was seen earlier this month by an oncologist Dr. Carranza with plans to start outpa tient chemotherapy. He was evaluated by Dr. Galvez as well for a 2nd opinion. He notes his breathing is improved and he denies fevers and chills. Past medical history: COPD, stage IV NSCLC Past surgical history: Denies Family history: Denies Social history: +tobacco Allergies: NKDA Review of systems: All remaining review of systems including HEENT, cardiovascular, respiratory, gastrointestinal, genitourinary, musculoskeletal, dermatologic, neurologic, and psychiatric are negative unless mentioned in the HPI. Past Patient History - Past Medical History & Family History Past Medical History?: Yes - Past Social History Smoking Status: Heavy Smoker > 10 Cigarettes Daily Alcohol: None Drugs: Denies - CARDIAC Hx Cardiac Disorders: No - PULMONARY Hx Respiratory Disorders: Yes Hx Lung Cancer: Yes - NEUROLOGICAL Hx Neurological Disorder: No - HEENT Hx HEENT Problems: No - RENAL Hx Chronic Kidney Disease: No - ENDOCRINE/METABOLIC Hx Endocrine Disorders: No - HEMATOLOGICAL/ONCOLOGICAL Hx Blood Disorders: No - INTEGUMENTARY Hx Dermatological Problems: No - MUSCULOSKELETAL/RHEUMATOLOGICAL Hx Musculoskeletal Disorders: No Hx Falls: No - GASTROINTESTINAL Hx Gastrointestinal Disorders: No - GENITOURINARY/GYNECOLOGICAL Hx Genitourinary Disorders: No - PSYCHIATRIC Hx Psychophysiologic Disorder: No Hx Substance Use: No - SURGICAL HISTORY Hx Surgeries: No - ANESTHESIA Hx Anesthesia: No Meds Allergies/Adverse Reactions: Allergies Allergy/AdvReac Type Severity Reaction Status Date / Time No Known Allergies Allergy Verified 07/20/18 19:16 - Medications Medications: Current Medications Acetaminophen (Tylenol 325mg Tab) 650 mg PO Q4 PRN PRN Reason: Pain, Mild (1-3) Acetylcysteine (Acetylcysteine 20%) 2 ml INH RBID JACK Last Admin: 08/10/18 07:22 Dose: 2 ml Albuterol Sulfate (Albuterol 0.083% Inhal Jo Ann (2.5 Mg/3 Ml) Ud) 2.5 mg INH RQ4 PRN PRN Reason: Shortness of Breath Albuterol/Ipratropium (Duoneb 3 Mg/0.5 Mg (3 Ml) Ud) 3 ml INH RQID JACK Last Admin: 08/10/18 11:00 Dose: 3 ml Enoxaparin Sodium (Lovenox) 40 mg SC DAILY JACK; Protocol Last Admin: 08/10/18 09:38 Dose: 40 mg Levofloxacin/Dextrose (Levaquin 500mg) 500 mg in 100 mls @ 100 mls/hr IVPB DAILY JACK; Protocol Last Admin: 08/10/18 09:38 Dose: 100 mls/hr Physical Exam - Head Exam Head Exam: ATRAUMATIC - Eye Exam Eye Exam: Normal appearance - ENT Exam ENT Exam: Mucous Membranes Dry - Respiratory Exam Respiratory Exam: NORMAL BREATHING PATTERN - Cardiovascular Exam Cardiovascular Exam: +S1, +S2 - GI/Abdominal Exam GI & Abdominal Exam: Normal Bowel Sounds Results - Vital Signs Recent Vital Signs: Last Vital Signs Temp 97.6 F 08/10/18 07:53 Pulse 90 08/10/18 07:53 Resp 20 08/10/18 07:53 BP 101/71 08/10/18 07:53 Pulse Ox 99 08/10/18 07:53 - Labs Result Diagrams: 08/06/18 15:40 08/06/18 15:40 Assessment & Plan (1) Lung cancer Assessment and Plan: stage IV - lung and liver lesions discussed with the patients family the importance of f/u with oncologist of their choosing to initiate systemic therapy Thank you for this interesting consult. Status: Acute Priority: High
--- NOTE | 2018-08-10 12:16 | PN ---
DATE: 08/09/2018 SUBJECTIVE: The patient was seen on 08/09/2018. He has less respiratory distress. I discussed the patient condition with his caregiver his cousin Veronica who stated that she and the patient likely to be treated at [facility] and oncologist to be called in the [facility] as he will not go back to Dr. Chavez that saw him once in [facility]. PHYSICAL EXAMINATION: VITAL SIGNS: Blood pressure is 104/68, temperature 98.9, respiratory rate 17 and pulse 100. HEENT: Pupils equal, reactive to light. Normal-appearing mucosa of the conjunctivae, oropharynx and nasal membrane mucosa. NECK: Supple. No JVD. No carotid bruit. No lymph node. No thyromegaly. CHEST AND LUNGS: Bilateral symmetrical expansion. Good air exchange. Bilateral rhonchi scattered all over lung benavidez. CARDIOVASCULAR SYSTEM: PMI not localized. S1, S2. No additional sounds. ABDOMEN: Normoactive bowel sounds. No tenderness. No organomegaly. No masses. EXTREMITIES: No cyanosis, no clubbing, no edema. CENTRAL NERVOUS SYSTEM: Alert, awake, oriented x2 and moves all extremities equally. ASSESSMENT: 1. Metastatic lung squamous cell carcinoma. 2. Chronic obstructive pulmonary disease. 3. Smoker. PLAN: Continues steroids and antibiotics, as patient has severe airway disease with bronchitis and possible parapneumonia. We will discuss with Dr. Quoc Bowden who is covering for Dr. Galvez regarding the further oncology treatment. Guillermo Cifuentes MD
[2018-08-11] MEDS: Acetylcysteine 20% Inhal Soln (4ml) INH SCH ×2 (07:22→19:25)
[2018-08-11] MEDS: Albuterol-Ipratrop 3 mg / 0.5 (3 ml) UD INH SCH ×4 (07:23→19:25)
--- NOTE | 2018-08-11 09:57 | PN ---
DATE: 08/10/2018 SUBJECTIVE: The patient was seen on 08/10/2018. He was still in mild respiratory distress, in need for oxygen. PHYSICAL EXAMINATION: VITAL SIGNS: Blood pressure was 110/74, temperature 98.3, respiratory rate 20 and pulse 114. HEENT: Pupils equal, reactive to light. Normal-appearing mucosa of the conjunctivae, oropharynx and nasal membrane mucosa. NECK: Supple. No JVD. No carotid bruit. No lymph node. No thyromegaly. CHEST AND LUNGS: Bilateral symmetrical expansion. Bilateral rhonchi is decreasing. CARDIOVASCULAR SYSTEM: PMI not localized. S1, S2. No additional sounds. ABDOMEN: Normoactive bowel sounds. No tenderness. No organomegaly. No masses. EXTREMITIES: No cyanosis, no clubbing, no edema. CERTIFIED MEDICINE AIDE: Alert, awake, oriented x2. No neurological deficit could be appreciated. ASSESSMENT: 1. Severe chronic obstructive pulmonary disease. 2. Metastatic squamous cell lung carcinoma. PLAN: Follow Pulmonary and Oncology recommendations. Continue bronchodilators and antibiotics. Continue oxygen as needed. Guillermo Cifuentes MD
[2018-08-11] MEDS: Enoxaparin 40 mg Syringe SC SCH (10:41)
[2018-08-11] MEDS: levoFLOXacin 500 mg in D5W 500 MG/100 ML BAG IVPB SCH (10:41)
--- NOTE | 2018-08-11 16:35 | CP.PCM.PN ---
Subjective - Date & Time of Evaluation Date of Evaluation: 08/11/18 Time of Evaluation: 11:30 - Subjective Subjective: Covering for Dr. Cifuentes Patient was seen and examined bedside. Chronically ill male sitting in bed on 2 L O2 via NC saturating 98 % , BP stable , Tmax 100.3 States his breathing is back to his baseline With auditory wheezing No acute issues overnight Objective - Vital Signs/Intake and Output Vital Signs (last 24 hours): Temp Pulse Resp BP Pulse Ox 98.1 F 119 H 18 100/69 97 08/11/18 12:18 08/11/18 12:18 08/11/18 12:18 08/11/18 12:18 08/11/18 12:18 - Medications Medications: Current Medications Acetaminophen (Tylenol 325mg Tab) 650 mg PO Q4 PRN PRN Reason: Pain, Mild (1-3) Acetylcysteine (Acetylcysteine 20%) 2 ml INH RBID JACK Last Admin: 08/11/18 07:22 Dose: 2 ml Albuterol Sulfate (Albuterol 0.083% Inhal Jo Ann (2.5 Mg/3 Ml) Ud) 2.5 mg INH RQ4 PRN PRN Reason: Shortness of Breath Albuterol/Ipratropium (Duoneb 3 Mg/0.5 Mg (3 Ml) Ud) 3 ml INH RQID JACK Last Admin: 08/11/18 15:05 Dose: 3 ml Enoxaparin Sodium (Lovenox) 40 mg SC DAILY JACK; Protocol Last Admin: 08/11/18 10:41 Dose: 40 mg Famotidine (Pepcid) 20 mg PO BID [facility] Last Admin: 08/11/18 10:44 Dose: 20 mg Levofloxacin/Dextrose (Levaquin 500mg) 500 mg in 100 mls @ 100 mls/hr IVPB DAILY JACK; Protocol Last Admin: 08/11/18 10:41 Dose: 100 mls/hr Prednisone (Prednisone Tab) 20 mg PO DAILY [facility] Last Admin: 08/11/18 10:42 Dose: 20 mg - Labs Labs: 08/06/18 15:40 08/06/18 15:40 - Constitutional Appears: Chronically Ill - Head Exam Head Exam: NORMOCEPHALIC - Eye Exam Eye Exam: PERRL Pupil Exam: NORMAL ACCOMODATION - ENT Exam ENT Exam: Mucous Membranes Moist, Normal Exam - Respiratory Exam Respiratory Exam: Prolonged Expiratory Phase, Rhonchi, Wheezes - Cardiovascular Exam Cardiovascular Exam: Tachycardia. absent: JVD - GI/Abdominal Exam GI & Abdominal Exam: Soft, Normal Bowel Sounds. absent: Distended, Guarding, Rebound - Rectal Exam Rectal Exam: Deferred - Extremities Exam Extremities Exam: Normal Capillary Refill, Normal Inspection. absent: Pedal Edema - Back Exam Back Exam: NORMAL INSPECTION - Neurological Exam Neurological Exam: Alert, Awake, CN II-XII Intact - Psychiatric Exam Psychiatric exam: Normal Affect - Skin Skin Exam: Dry, Warm Assessment and Plan - Assessment and Plan (Free Text) Assessment: 68 y/o male with history of smoking , recently diagnosed with metastatic squamous cell carcinoma at [facility] ) discharged 07/30 presented to [facility] with worsening SOB. Pulmonary and oncology consulted He is on home O2 and at present saturating 98 5 on 2 L O2 vi anc , breathing back to his baseline as per patient 1. Metastatic squamous cell Ca poor prognosis can follow up with oncologist as outpatient continue O2 via NC On low dose steroids as per pulmonary and on Levaquine IV Continue Feronebs 2.Dvt prophylaxis Lovenox
[2018-08-12] MEDS: Acetylcysteine 20% Inhal Soln (4ml) INH SCH ×2 (07:08→19:56)
[2018-08-12] MEDS: Albuterol-Ipratrop 3 mg / 0.5 (3 ml) UD INH SCH ×4 (07:08→19:56)
[2018-08-12] MEDS: Enoxaparin 40 mg Syringe SC SCH (08:47)
[2018-08-12] MEDS: levoFLOXacin 500 mg in D5W 500 MG/100 ML BAG IVPB SCH (08:48)
--- NOTE | 2018-08-12 15:50 | CP.PCM.PN ---
Subjective - Date & Time of Evaluation Date of Evaluation: 08/12/18 Time of Evaluation: 10:00 - Subjective Subjective: Patient seen and examined bedside . Chronically ill , sitting in bed in NAD , saturating 98 % with 3 L O2 via NC. with audible wheezing Hemodynamically stable, afebrile Objective - Vital Signs/Intake and Output Vital Signs (last 24 hours): Temp Pulse Resp BP Pulse Ox 98.9 F 106 H 18 103/69 96 08/12/18 13:00 08/12/18 13:00 08/12/18 13:00 08/12/18 13:00 08/12/18 13:00 - Medications Medications: Current Medications Acetaminophen (Tylenol 325mg Tab) 650 mg PO Q4 PRN PRN Reason: Pain, Mild (1-3) Acetylcysteine (Acetylcysteine 20%) 2 ml INH RBID JACK Last Admin: 08/12/18 07:08 Dose: 2 ml Albuterol Sulfate (Albuterol 0.083% Inhal Jo Ann (2.5 Mg/3 Ml) Ud) 2.5 mg INH RQ4 PRN PRN Reason: Shortness of Breath Albuterol/Ipratropium (Duoneb 3 Mg/0.5 Mg (3 Ml) Ud) 3 ml INH RQID JACK Last Admin: 08/12/18 15:08 Dose: 3 ml Enoxaparin Sodium (Lovenox) 40 mg SC DAILY JACK; Protocol Last Admin: 08/12/18 08:47 Dose: 40 mg Famotidine (Pepcid) 20 mg PO BID [facility] Last Admin: 08/12/18 08:46 Dose: 20 mg Levofloxacin/Dextrose (Levaquin 500mg) 500 mg in 100 mls @ 100 mls/hr IVPB DAILY JACK; Protocol Last Admin: 08/12/18 08:48 Dose: 100 mls/hr Prednisone (Prednisone Tab) 20 mg PO DAILY JACK Last Admin: 08/12/18 08:47 Dose: 20 mg - Labs Labs: 08/06/18 15:40 08/06/18 15:40 - Constitutional Appears: No Acute Distress, Chronically Ill - Head Exam Head Exam: ATRAUMATIC, NORMOCEPHALIC - Eye Exam Eye Exam: PERRL Pupil Exam: NORMAL ACCOMODATION - ENT Exam ENT Exam: Normal Exam - Neck Exam Neck Exam: Normal Inspection - Respiratory Exam Respiratory Exam: Prolonged Expiratory Phase, Rhonchi, Wheezes - Cardiovascular Exam Cardiovascular Exam: REGULAR RHYTHM, RRR. absent: JVD - GI/Abdominal Exam GI & Abdominal Exam: Soft, Normal Bowel Sounds. absent: Distended, Guarding, Rebound - Rectal Exam Rectal Exam: Deferred - Extremities Exam Extremities Exam: Normal Capillary Refill, Normal Inspection. absent: Pedal Edema - Back Exam Back Exam: NORMAL INSPECTION - Neurological Exam Neurological Exam: Alert, Awake, CN II-XII Intact - Psychiatric Exam Psychiatric exam: Normal Affect - Skin Skin Exam: Dry, Warm Assessment and Plan - Assessment and Plan (Free Text) Assessment: 68 y/o male with history of smoking , recently diagnosed with metastatic squamo us cell carcinoma at [facility] ) discharged 07/30 presented to [facility] with worsening SOB. Pulmonary and oncology consulted He is on home O2 and at present saturating 98 % on 3 L O2 via NC 1. Metastatic squamous cell Ca poor prognosis can follow up with oncologist as outpatient continue O2 via NC On low dose steroids as per pulmonary and on Levaquine IV Continue Duonebs PT eval appreciated . recommended TCU for PT 2.Dvt prophylaxis Lovenox
[2018-08-13] MEDS: Acetylcysteine 20% Inhal Soln (4ml) INH SCH (07:40)
[2018-08-13] MEDS: Albuterol-Ipratrop 3 mg / 0.5 (3 ml) UD INH SCH ×3 (07:40→15:43)
[2018-08-13 07:58] VITALS: RESP 20
[2018-08-13] MEDS: Enoxaparin 40 mg Syringe SC SCH (08:54)
[2018-08-13] MEDS: levoFLOXacin 500 mg in D5W 500 MG/100 ML BAG IVPB SCH (08:55)
--- NOTE | 2018-08-13 11:31 | CP.PCM.PN ---
Subjective - Date & Time of Evaluation Date of Evaluation: 08/11/18 Time of Evaluation: 15:00 - Subjective Subjective: Breathing better Objective - Vital Signs/Intake and Output Vital Signs (last 24 hours): Temp Pulse Resp BP Pulse Ox 97.6 F 106 H 20 107/72 95 08/13/18 07:58 08/13/18 07:58 08/13/18 07:58 08/13/18 07:58 08/13/18 07:58 - Medications Medications: Current Medications Acetaminophen (Tylenol 325mg Tab) 650 mg PO Q4 PRN PRN Reason: Pain, Mild (1-3) Acetylcysteine (Acetylcysteine 20%) 2 ml INH RBID JACK Last Admin: 08/13/18 07:40 Dose: 2 ml Albuterol Sulfate (Albuterol 0.083% Inhal Jo Ann (2.5 Mg/3 Ml) Ud) 2.5 mg INH RQ4 PRN PRN Reason: Shortness of Breath Albuterol/Ipratropium (Duoneb 3 Mg/0.5 Mg (3 Ml) Ud) 3 ml INH RQID JACK Last Admin: 08/13/18 07:40 Dose: 3 ml Enoxaparin Sodium (Lovenox) 40 mg SC DAILY JACK; Protocol Last Admin: 08/13/18 08:54 Dose: 40 mg Famotidine (Pepcid) 20 mg PO BID JACK Last Admin: 08/13/18 08:54 Dose: 20 mg Levofloxacin/Dextrose (Levaquin 500mg) 500 mg in 100 mls @ 100 mls/hr IVPB DAILY JACK; Protocol Last Admin: 08/13/18 08:55 Dose: 100 mls/hr Prednisone (Prednisone Tab) 20 mg PO DAILY JACK Last Admin: 08/13/18 08:54 Dose: 20 mg - Labs Labs: 08/06/18 15:40 08/06/18 15:40 - Head Exam Head Exam: ATRAUMATIC - Eye Exam Eye Exam: Normal appearance - ENT Exam ENT Exam: Mucous Membranes Dry - Respiratory Exam Respiratory Exam: NORMAL BREATHING PATTERN - Cardiovascular Exam Cardiovascular Exam: +S1, +S2 - GI/Abdominal Exam GI & Abdominal Exam: Normal Bowel Sounds Assessment and Plan (1) Lung cancer Assessment & Plan: stage IV outpatient treatment Status: Acute
--- NOTE | 2018-08-13 11:32 | CP.PCM.PN ---
Subjective - Date & Time of Evaluation Date of Evaluation: 08/12/18 Time of Evaluation: 18:00 - Subjective Subjective: No complaints. Objective - Vital Signs/Intake and Output Vital Signs (last 24 hours): Temp Pulse Resp BP Pulse Ox 97.6 F 106 H 20 107/72 95 08/13/18 07:58 08/13/18 07:58 08/13/18 07:58 08/13/18 07:58 08/13/18 07:58 - Medications Medications: Current Medications Acetaminophen (Tylenol 325mg Tab) 650 mg PO Q4 PRN PRN Reason: Pain, Mild (1-3) Acetylcysteine (Acetylcysteine 20%) 2 ml INH RBID JACK Last Admin: 08/13/18 07:40 Dose: 2 ml Albuterol Sulfate (Albuterol 0.083% Inhal Jo Ann (2.5 Mg/3 Ml) Ud) 2.5 mg INH RQ4 PRN PRN Reason: Shortness of Breath Albuterol/Ipratropium (Duoneb 3 Mg/0.5 Mg (3 Ml) Ud) 3 ml INH RQID JACK Last Admin: 08/13/18 07:40 Dose: 3 ml Enoxaparin Sodium (Lovenox) 40 mg SC DAILY [facility]; Protocol Last Admin: 08/13/18 08:54 Dose: 40 mg Famotidine (Pepcid) 20 mg PO BID [facility] Last Admin: 08/13/18 08:54 Dose: 20 mg Levofloxacin/Dextrose (Levaquin 500mg) 500 mg in 100 mls @ 100 mls/hr IVPB DAILY JACK; Protocol Last Admin: 08/13/18 08:55 Dose: 100 mls/hr Prednisone (Prednisone Tab) 20 mg PO DAILY [facility] Last Admin: 08/13/18 08:54 Dose: 20 mg - Labs Labs: 08/06/18 15:40 08/06/18 15:40 - Head Exam Head Exam: ATRAUMATIC - Eye Exam Eye Exam: Normal appearance - ENT Exam ENT Exam: Mucous Membranes Dry - Respiratory Exam Respiratory Exam: NORMAL BREATHING PATTERN - Cardiovascular Exam Cardiovascular Exam: +S1, +S2 - GI/Abdominal Exam GI & Abdominal Exam: Normal Bowel Sounds Assessment and Plan (1) Lung cancer Assessment & Plan: stage IV outpatient treatment Status: Acute
--- NOTE | 2018-08-13 11:51 | CP.PCM.DIS ---
Provider - Provider Date of Admission: 08/08/18 11:18 Attending physician: Guillermo Cifuentes MD Primary care physician: Dr Brayan Novak Consults: 08/06/18 23:23 Nursing Referral for Palliative Care Routine Comment: Consulting Provider: Suad Smith Physician Instructions: Reason For Exam: As per Admission Assessment 08/06/18 23:34 Case Management Referral Routine Comment: Physician Instructions: Reason For Exam: Reason for Referral: Discharge Planning 08/06/18 23:37 Social Work Referral Routine Comment: Uses O2 at home Physician Instructions: Reason For Exam: As per Admission Assessment 08/07/18 01:44 Pulmonology Consult Routine Comment: Consulting Provider: Navin Mcclain Consulting Physician: Navin Mcclain Reason for Consult: Increasing dyspnea 08/07/18 08:10 Wound Care [Nursing Referral for Wound Care] Routine Comment: Physician Instructions: Reason For Exam: Please evaluate sacral area. 08/09/18 08:59 Hematology Oncology Consult Routine Comment: Consulting Provider: Quoc Bowden Consulting Physician: Quoc Bowden Reason for Consult: lung ca with mets Time Spent in preparation of Discharge (in minutes): 40 Diagnosis - Discharge Diagnosis (1) Lung cancer Status: Chronic Priority: High (2) Widespread metastatic malignant neoplastic disease Status: Chronic Priority: High (3) COPD (chronic obstructive pulmonary disease) Status: Chronic Hospital Course - Lab Results Lab Results: Micro Results 08/07/18 02:05 Blood Blood Culture - Final NO GROWTH AFTER 5 DAYS 08/07/18 02:05 Blood Gram Stain - Final TEST NOT PERFORMED 08/07/18 01:50 Blood Blood Culture - Final NO GROWTH AFTER 5 DAYS 08/07/18 01:50 Blood Gram Stain - Final TEST NOT PERFORMED Most Recent Lab Values WBC 13.1 K/uL (4.8-10.8) H 08/06/18 15:40 RBC 4.91 Mil/uL (4.40-5.90) 08/06/18 15:40 Hgb 13.3 g/dL (12.0-18.0) 08/06/18 15:40 Hct 41.4 % (35.0-51.0) 08/06/18 15:40 MCV 84.4 fl (80.0-94.0) 08/06/18 15:40 MCH 27.0 pg (27.0-31.0) 08/06/18 15:40 MCHC 32.0 g/dL (33.0-37.0) L 08/06/18 15:40 RDW 17.8 % (11.5-14.5) H 08/06/18 15:40 Plt Count 191 K/uL (130-400) 08/06/18 15:40 MPV 8.1 fl (7.2-11.7) 08/06/18 15:40 Neut % (Auto) 90.3 % (50.0-75.0) H 08/06/18 15:40 Lymph % (Auto) 4.4 % (20.0-40.0) L 08/06/18 15:40 Alexander % (Auto) 4.9 % (0.0-10.0) 08/06/18 15:40 Eos % (Auto) 0.2 % (0.0-4.0) 08/06/18 15:40 Baso % (Auto) 0.2 % (0.0-2.0) 08/06/18 15:40 Neut # (Auto) 11.8 K/uL (1.8-7.0) H 08/06/18 15:40 Lymph # (Auto) 0.6 K/uL (1.0-4.3) L 08/06/18 15:40 Alexander # (Auto) 0.6 K/uL (0.0-0.8) 08/06/18 15:40 Eos # (Auto) 0.0 K/uL (0.0-0.7) 08/06/18 15:40 Baso # (Auto) 0.0 K/uL (0.0-0.2) 08/06/18 15:40 Neutrophils % (Manual) 90 % (42-75) H 08/06/18 15:40 Lymphocytes % (Manual) 5 % (20-50) L 08/06/18 15:40 Monocytes % (Manual) 4 % (0-10) 08/06/18 15:40 Basophils % (Manual) 1 % (0-2) 08/06/18 15:40 Platelet Estimate Normal (NORMAL) 08/06/18 15:40 Anisocytosis (manual) Slight 08/06/18 15:40 Ovalocytes Slight 08/06/18 15:40 Sodium 140 mmol/l (132-148) 08/06/18 15:40 Potassium 4.1 MMOL/L (3.6-5.0) 08/06/18 15:40 Chloride 100 mmol/L (98-107) 08/06/18 15:40 Carbon Dioxide 35 mmol/L (22-30) H 08/06/18 15:40 Anion Gap 9 (10-20) L 08/06/18 15:40 BUN 24 mg/dl (9-20) H 08/06/18 15:40 Creatinine 0.6 mg/dl (0.8-1.5) L 08/06/18 15:40 Est GFR ( Amer) > 60 08/06/18 15:40 Est GFR (Non-Af Amer) > 60 08/06/18 15:40 Random Glucose 100 mg/dL (75-110) 08/06/18 15:40 Calcium 8.8 mg/dL (8.4-10.2) 08/06/18 15:40 Total Bilirubin 0.4 mg/dl (0.2-1.3) 08/06/18 15:40 AST 20 U/L (17-59) 08/06/18 15:40 ALT 36 U/L (21-72) 08/06/18 15:40 Alkaline Phosphatase 80 U/L (38-126) 08/06/18 15:40 Troponin I < 0.0120 ng/mL (0.00-0.120) 08/06/18 15:40 NT-Pro-B Natriuret Pep 155 pg/ml (0-900) 08/06/18 15:40 Total Protein 6.7 G/DL (6.3-8.2) 08/06/18 15:40 Albumin 3.2 g/dL (3.5-5.0) L 08/06/18 15:40 Globulin 3.4 gm/dL (2.2-3.9) 08/06/18 15:40 Albumin/Globulin Ratio 0.9 (1.0-2.1) L 08/06/18 15:40 Influenza Typ A,B (EIA) Negative for flu a/b (NEGATIVE) 08/06/18 15:40 - Hospital Course Hospital Course: 68 y/o male with history of smoking , 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 Pt was started on Duoneb treatment, IV Levaquin and Prednisone and his symptoms improved. Pulmonary and oncology consulted ., recommended to start Chemotherapy. PHysical therapy consulted - rec PATTY . Family refused PATTY placement and would like to bring pt home and follow up with Oncology . ( MATT Martin) He is on Home OXygen and at present saturating 98 % on 3 L O2 via NC . [facility] to ff up pt at home. Home RN/PT. 1. Metastatic squamous cell Ca poor prognosis follow up with oncologist as outpatient francesca to start Chemotherapy continue O2 via NC cont Duoneb tx and low dose steroids 2. COPD chronic cont Prednisone and Duoneb tx 3.Dvt prophylaxis Lovenox Discharge Exam - Head Exam Head Exam: ATRAUMATIC, NORMAL INSPECTION, NORMOCEPHALIC - Eye Exam Eye Exam: EOMI, Normal appearance Pupil Exam: NORMAL ACCOMODATION - ENT Exam ENT Exam: Mucous Membranes Moist, Normal External Ear Exam - Neck Exam Neck exam: Full Rom - Respiratory Exam Respiratory Exam: Rales, Rhonchi. absent: Wheezes, Respiratory Distress - Cardiovascular Exam Cardiovascular Exam: REGULAR RHYTHM, +S1, +S2 - GI/Abdominal Exam GI & Abdominal Exam: Normal Bowel Sounds, Soft. absent: Tenderness - Extremities Exam Extremities exam: normal capillary refill, pedal pulses present - Back Exam Back exam: FULL ROM. absent: CVA tenderness (L), CVA tenderness (R) - Neurological Exam Neurological exam: Alert, CN II-XII Intact Additional comments: oriented to person and place - Psychiatric Exam Psychiatric exam: Flat Affect - Skin Skin Exam: Dry, Normal Color, Warm Discharge Plan - Discharge Medications Prescriptions: Albuterol/Ipratropium [Duoneb 3 mg/0.5 mg (3 ml) UD] 3 ml INH RQID #100 neb Famotidine [Pepcid] 20 mg PO BID #60 tab predniSONE [predniSONE Tab] 20 mg PO DAILY #10 tab Tiotropium [Spiriva] 18 mcg IH DAILY 30 Days #30 cap - Follow Up Plan Condition: STABLE Disposition: HOME/ ROUTINE Instructions: Lung Cancer (DC) Additional Instructions: ff up with Oncologist francesca ff up with PMD Dr Scarlet ma Referrals: Brayan Novak MD [Staff Provider] -
[2018-08-13 17:02] VITALS: BP 134/95; PULSE 118; TEMP 97.8; O2SAT 95
== END 2018-08-13 17:40 | disposition home health service (06) | DRG 191 ==
LOC: H.ER 14:31 → H.ERHOLD 20:30 → H.TEL 22:27 → OBSVTOIN 08-08 11:18
PROVIDERS: ADMIT Internal Medicine; ATTEND Internal Medicine
DX: J44.1 Chronic obstructive pulmonary disease with (acute) exacerbation (principal); C78.01 Secondary malignant neoplasm of right lung; C34.90 Malignant neoplasm of unspecified part of unspecified bronchus or lung; C78.02 Secondary malignant neoplasm of left lung; C78.7 Secondary malignant neoplasm of liver and intrahepatic bile duct; J93.9 Pneumothorax, unspecified; F17.200 Nicotine dependence, unspecified, uncomplicated; J43.2 Centrilobular emphysema; J43.8 Other emphysema; Z85.118 Personal history of other malignant neoplasm of bronchus and lung; Z99.81 Dependence on supplemental oxygen; R62.50 Unspecified lack of expected normal physiological development in childhood; R06.03 Acute respiratory distress; R59.0 Localized enlarged lymph nodes